=== PATIENT | male | born 1940 | race Caucasian/White ===

== ENCOUNTER → 2018-04-18 | Outpatient (CLI) | payer MEDICARE, OTHER | LOC: ROC 10:47 | PROVIDERS: ATTEND Radiology Radiation Oncology | DX: Z02.9 Encounter for administrative examinations, unspecified (principal) ==

== ENCOUNTER → 2018-04-28 | Outpatient (CLI) | payer MEDICARE, OTHER | LOC: ROC 09:15 | PROVIDERS: ATTEND Radiology Radiation Oncology | DX: C61 Malignant neoplasm of prostate (principal) | CPT/HCPCS: G0463 ==

== ENCOUNTER 2018-05-27 12:09 | Day surgery (SDC) | payer MEDICARE, OTHER ==
[~2018-05-27] VITALS: Ht 182.9 cm; Wt 105.1 kg
[2018-05-27] MEDS ORDERED: LIDOCAINE-MPF 2% ,5ML ONE ×2 (12:11→14:31)
[2018-05-27] MEDS ORDERED: SODIUM CHLORIDE 0.9% 1,000 ML IV SCH (12:23)
[2018-05-27] MEDS ORDERED: CEFAZOLIN PMX 1GM/50ML 50 ML IV ONE (12:30)
[2018-05-27 12:32] VITALS: BP 160/95
[2018-05-27] MEDS ORDERED: NALOXONE 1 MG/ML, 2ML ONE (13:03)
[2018-05-27] MEDS ORDERED: FLUMAZENIL 0.1 MG/1 ML, 5ML ONE (13:03)
[2018-05-27] MEDS ORDERED: FENTANYL PF 100 MCG/2ML ONE (13:04)
[2018-05-27] MEDS ORDERED: MIDAZOLAM 1 MG/ML, 5ML ONE (13:04)
[2018-05-27] MEDS ORDERED: LIDOCAINE-MPF 1%, 2ML ONE (13:23)
== END 2018-05-27 16:15 | disposition home or self-care (01) ==
LOC: OUT 12:09
PROVIDERS: ATTEND Internal Medicine Hematology & Oncology
DX: Z45.2 Encounter for adjustment and management of vascular access device (principal); C85.11 Unspecified B-cell lymphoma, lymph nodes of head, face, and neck; I10 Essential (primary) hypertension; Z88.8 Allergy status to other drugs, medicaments and biological substances; Z85.46 Personal history of malignant neoplasm of prostate
CPT/HCPCS: 10022; 36561; 76937; 76942; 77001; 88172; 88173; 99156; 99157; C1788; C1894; J0690; J1642; J2250; J2310; J3010; J3490; J7030

== ENCOUNTER → 2018-11-16 | Outpatient (CLI) | payer MEDICARE, OTHER | END | disposition home or self-care (01) | LOC: ROC 10:50 | PROVIDERS: ATTEND Radiology Radiation Oncology | DX: C61 Malignant neoplasm of prostate (principal) | CPT/HCPCS: G0463 ==

== ENCOUNTER 2019-01-10 09:03 | Day surgery (SDC) | payer MEDICARE, OTHER ==
[~2019-01-10] VITALS: Ht 180.3 cm; Wt 107.9 kg
[2019-01-10 09:42] VITALS: BP 156/73
[2019-01-10] MEDS ORDERED: SODIUM CHLORIDE 0.9% 1,000 ML IV SCH (09:46)
[2019-01-10] MEDS ORDERED: LIDOCAINE-MPF 1%, 5ML ONE ×3 (10:36→14:01)
[2019-01-10] MEDS ORDERED: MIDAZOLAM 1 MG/ML, 5ML ONE (10:58)
[2019-01-10] MEDS ORDERED: FENTANYL PF 100 MCG/2ML ONE ×2 (10:58→13:37)
[2019-01-10] MEDS ORDERED: FLUMAZENIL 0.1 MG/1 ML, 5ML ONE (10:58)
[2019-01-10] MEDS ORDERED: NALOXONE 1 MG/ML, 2ML ONE (10:59)
[2019-01-10] MEDS ORDERED: THROMBIN 5,000 UNIT VIAL TP ONE (14:30)
== END 2019-01-10 16:35 | disposition home or self-care (01) ==
LOC: OUT 09:03 → EDSTATUS 10:30 → OUT 16:35
PROVIDERS: ATTEND Internal Medicine Hematology & Oncology
DX: Z45.2 Encounter for adjustment and management of vascular access device (principal); C82.98 Follicular lymphoma, unspecified, lymph nodes of multiple sites; I10 Essential (primary) hypertension; C61 Malignant neoplasm of prostate; F41.9 Anxiety disorder, unspecified; K21.9 Gastro-esophageal reflux disease without esophagitis; E78.5 Hyperlipidemia, unspecified; Z72.89 Other problems related to lifestyle; Z98.890 Other specified postprocedural states; Z88.8 Allergy status to other drugs, medicaments and biological substances
CPT/HCPCS: 36590; 77001; 99156; 99157; J2250; J3010; J7030; J2310